=== PATIENT | male | born 1930 | race African-American/Black ===

== ENCOUNTER 2017-09-08 01:47 | Inpatient (IN) | payer MEDICARE ==
[2017-09-08] VITALS (15 sets, daily range): BP systolic 120–191; BP diastolic 56–85; PULSE 71–94; RESP 14–19; TEMP 98–102.6; O2SAT 96–99
[~2017-09-08] VITALS: Ht 175.3 cm; Wt 76.5 kg
[~2017-09-08 01:47] MED LIST: ASPI81 PO; GLIP5 PO; RANI150 PO
[2017-09-08 02:56] LABS: BICARBONATE 19.9 MEQ/L (21.0-32.0); CALCIUM 8.6 MG/DL (8.5-10.1); CREATININE 1.25 MG/DL (0.60-1.30)
[2017-09-08 03:16] LABS: AUTOMATED NEUTROPHIL # 8.5 TH/MM3 (1.8-7.7); BASOPHIL # 0.1 TH/MM3 (0-0.2); BASOPHIL % 0.5 % (0.0-2.0); EOSINOPHIL # 0.1 TH/MM3 (0-0.4); EOSINOPHIL % 0.9 % (0.0-4.0); HEMATOCRIT 37.6 % (39.0-51.0); HEMOGLOBIN 12.6 GM/DL (13.0-17.0); LYMPH % 11.2 % (9.0-44.0); LYMPHOCYTE # 1.2 TH/MM3 (1.0-4.8); MEAN CELL VOLUME 94.4 FL (80.0-100.0); MEAN CORPUSCULAR HEMOGLOBIN 31.6 PG (27.0-34.0); MEAN CORPUSCULAR HGB CONC 33.4 % (32.0-36.0); MEAN PLATELET VOLUME 8.6 FL (7.0-11.0); MONO % 10.6 % (0.0-8.0); MONOCYTE # 1.2 TH/MM3 (0-0.9); NEUT % 76.8 % (16.0-70.0); PLATELET COUNT 183 TH/MM3 (150-450); RED BLOOD COUNT 3.98 MIL/MM3 (4.50-5.90); RED CELL DISTRIBUTION WIDTH 15.3 % (11.6-17.2); WHITE BLOOD COUNT 11.1 TH/MM3 (4.0-11.0)
--- NOTE | 2017-09-08 03:23 | PD ---
HPI Chief Complaint: Complaint Time Seen by Provider: 02:04 Travel History International Travel<30 days: No Contact w/Intl Traveler<30days: No Traveled to known affect area: No History of Present Illness HPI This is an 86-year-old male with history of diabetes mellitus, prostate cancer, presents today with complaints of difficulty urinating. Patient also reports blood from his penis. He reports that he feels the urge over the last 24 hours. He states that when he goes to the restroom all he can do is push out a small amount of blood. He denies any previous history of hematuria. Initially when I asked the patient to be had any prostate issues, he reported that he had an enlarged prostate. He did not give the history of his prostate cancer which I obtained through the old records. There is no reported fevers, chills. There is no reported nausea vomiting diarrhea. PFSH Past Medical History Blood Disorders: No Diabetes: Yes Patient Takes Glucophage: Yes (GLIPIZIDE) Medical other: Yes (EYES) Tetanus Vaccination: < 5 Years Past Surgical History Surgical History: No Previous Surgery Social History Alcohol Use: Yes Tobacco Use: No Substance Use: No Allergies-Medications (Allergen,Severity, Reaction): Coded Allergies: No Known Allergies (Verified Allergy, Unknown, 09/08/17) Reported Meds & Prescriptions Reported Meds & Active Scripts Active Reported Zantac (Ranitidine HCl) 150 Mg Tab 150 Mg PO BID Aspirin 81 Mg Tab 81 Mg PO DAILY Glipizide 5 Mg Tab 5 Mg PO BID Review of Systems Except as stated in HPI: all other systems reviewed are Neg General / Constitutional: No: Fever, Chills HENT: No: Headaches, Lightheadedness Cardiovascular: No: Chest Pain or Discomfort, Palpitations Respiratory: No: Cough, Shortness of Breath Gastrointestinal: Positive: Abdominal Pain (Suprapubic pain), No: Nausea, Vomiting, Diarrhea Genitourinary: Positive: Dysuria, Hematuria Musculoskeletal: No: Weakness, Pain Neurologic: No: Weakness, Dizziness, Headache Physical Exam Narrative GENERAL: Well-developed well-nourished male in no acute respiratory distress. SKIN: Focused skin assessment warm/dry. HEAD: Atraumatic. Normocephalic. EYES: Pupils equal and round. No scleral icterus. No injection or drainage. ENT: No nasal bleeding or discharge. Mucous membranes pink and moist. NECK: Trachea midline. No JVD. CARDIOVASCULAR: Regular rate and rhythm. No murmur appreciated. RESPIRATORY: No accessory muscle use. Clear to auscultation. Breath sounds equal bilaterally. GASTROINTESTINAL: Abdomen soft, suprapubic discomfort to deep palpation. No rebound no guarding. MUSCULOSKELETAL: No obvious deformities. No clubbing. No cyanosis. No edema. NEUROLOGICAL: Awake and alert. No obvious cranial nerve deficits. Motor grossly within normal limits. Normal speech. Data Data Last Documented VS Vital Signs Date Time Temp Pulse Resp B/P (MAP) Pulse Ox O2 Delivery O2 Flow Rate FiO2 09/08/17 02:22 18 99 Room Air 09/08/17 01:52 100.1 74 191/84 (119) Orders Orders Complete Blood Count With Diff (09/08/17 02:04) Basic Metabolic Panel (Bmp) (09/08/17 02:04) Prothrombin Time / Inr (Pt) (09/08/17 02:04) Act Partial Throm Time (Ptt) (09/08/17 02:04) Urinalysis - C+S If Indicated (09/08/17 02:04) Iv Access Insert/Monitor (09/08/17 02:04) Ecg Monitoring (09/08/17 02:04) Oximetry (09/08/17 02:04) Urinary Catheter Insert/Apply (09/08/17 02:04) Urine Culture (09/08/17 02:57) Ceftriaxone Inj (Rocephin Inj) (09/08/17 04:00) Morphine Inj (Morphine Inj) (09/08/17 04:45) Ondansetron Inj (Zofran Inj) (09/08/17 04:45) Admit Order (Ed Use Only) (09/08/17 04:51) Labs Laboratory Tests Test 09/08/17 02:15 09/08/17 02:57 White Blood Count 11.1 TH/MM3 Red Blood Count 3.98 MIL/MM3 Hemoglobin 12.6 GM/DL Hematocrit 37.6 % Mean Corpuscular Volume 94.4 FL Mean Corpuscular Hemoglobin 31.6 PG Mean Corpuscular Hemoglobin Concent 33.4 % Red Cell Distribution Width 15.3 % Platelet Count 183 TH/MM3 Mean Platelet Volume 8.6 FL Neutrophils (%) (Auto) 76.8 % Lymphocytes (%) (Auto) 11.2 % Monocytes (%) (Auto) 10.6 % Eosinophils (%) (Auto) 0.9 % Basophils (%) (Auto) 0.5 % Neutrophils # (Auto) 8.5 TH/MM3 Lymphocytes # (Auto) 1.2 TH/MM3 Monocytes # (Auto) 1.2 TH/MM3 Eosinophils # (Auto) 0.1 TH/MM3 Basophils # (Auto) 0.1 TH/MM3 CBC Comment DIFF FINAL Differential Comment Prothrombin Time 10.0 SEC Prothromb Time International Ratio 1.0 RATIO Activated Partial Thromboplast Time 30.2 SEC Blood Urea Nitrogen 27 MG/DL Creatinine 1.25 MG/DL Random Glucose 139 MG/DL Calcium Level 8.6 MG/DL Sodium Level 138 MEQ/L Potassium Level 3.7 MEQ/L Chloride Level 108 MEQ/L Carbon Dioxide Level 19.9 MEQ/L Anion Gap 10 MEQ/L Estimat Glomerular Filtration Rate 67 ML/MIN Urine Color DARK-RED Urine Turbidity HAZY Urine pH 6.5 Urine Specific [place] 1.008 Urine Protein 100 mg/dL Urine Glucose (UA) NEG mg/dL Urine Ketones 10 mg/dL Urine Occult Blood LARGE Urine Nitrite POS Urine Bilirubin SMALL Urine Urobilinogen 2.0 MG/DL Urine Leukocyte Esterase MOD Urine RBC 154 /hpf Urine WBC /hpf Urine WBC Clumps FEW Urine Calcium Oxalate Crystals FEW /hpf Urine Bacteria MANY /hpf Microscopic Urinalysis Comment CULTURE INDICATED MDM Medical Decision Making Medical Screen Exam Complete: Yes Emergency Medical Condition: Yes Differential Diagnosis Hemorrhagic cystitis versus enlarged prostate versus bladder cancer. Narrative Course 86-year-old male with a history of prostate cancer, diabetes most, presents today with complaint of hematuria and inability to urinate. States he has the urge to urinate however when he goes to urinate only pure blood comes out of his bladder. There is no reported fevers chills. The patient has gross hematuria on exam. He has had a catheter placed and has continuous bowel irrigation initiated. He has been given 1 g of Rocephin. He will be admitted to the hospital for persistent hematuria. Case was discussed with Dr. Quispe and she is agreeable to the admission. Diagnosis Primary Impression: Hemorrhagic cystitis Additional Impressions: Urinary retention DM (diabetes mellitus) Admitting Information Admitting Physician Requests: Admit Jonh Ritchie MD Sep 08, 2017 03:23
[2017-09-08 03:42] LABS: BACTERIA, URINE MANY /hpf; BILIRUBIN, URINE SMALL (NEG); BLOOD, URINE LARGE (NEG); CALCIUM OXALATE CRYSTALS,URINE FEW /hpf; GLUCOSE,URINE NEG (NEG); KETONE, URINE 10 mg/dL (NEG); NITRITE,URINE POS (NEG); PH, URINE 6.5 (5.0-8.5); URINE LEUKOCYTE ESTERASE MOD (NEG); WHITE BLOOD CELL CLUMPS FEW
[2017-09-08 03:43] LABS: URINE COLOR DARK-RED (YELLW/STRAW)
[2017-09-08] MEDS ORDERED: cefTRIAXone INJ 1,000 MG in SODIUM CHLORIDE 0.9% INJ 100 ML IV ONE (04:00)
[2017-09-08] MEDS ORDERED: MORPHINE SULFATE 8 MG/ML INJ IV PUSH ONE (04:45)
[2017-09-08] MEDS ORDERED: ONDANSETRON HCL 4 MG/2 ML VIAL IV PUSH ONE (04:45)
[2017-09-08] MEDS ORDERED: BISACODYL 10 MG SUPP RECTAL PRN (05:00)
[2017-09-08] MEDS ORDERED: SODIUM CHLORIDE 0.9% FLUSH 10 ML FLUSH IV FLUSH PRN (05:00)
[2017-09-08] MEDS ORDERED: DEXTROSE 50% IN WATER 50 ML VIAL(D50) IV PUSH PRN (05:00)
[2017-09-08] MEDS ORDERED: LACTULOSE SYRUP 20 GM/30 ML CUP PO PRN (05:00)
[2017-09-08] MEDS ORDERED: ACETAMINOPHEN/HYDROcodone 325 MG/5 MG TAB PO PRN (05:00)
[2017-09-08] MEDS ORDERED: ONDANSETRON HCL 4 MG/2 ML VIAL IVP PRN (05:00)
[2017-09-08] MEDS ORDERED: SENNOSIDES 8.6 MG TAB PO PRN (05:00)
[2017-09-08] MEDS ORDERED: MORPHINE SULFATE 2 MG/ML SYRINGE IV PUSH PRN (05:00)
[2017-09-08] MEDS ORDERED: GLUCAGON 1 MG/ML VIAL OTHER PRN (05:00)
--- NOTE | 2017-09-08 05:18 | HHI.HP ---
H[facility] Primary [facility] Physician Anjali Hood MD Admission Diagnosis persistant gross hematuria, cystitis, prostate cancer by history. Diagnoses: (1) Hemorrhagic cystitis Diagnosis: Principal (2) Urinary retention Diagnosis: Principal (3) DM (diabetes mellitus) Diagnosis: Principal Travel History International Travel<30 Days: No Contact w/Intl Traveler <30 Da: No Traveled to Known Affected Are: No History of Present Illness This is an 86-year-old male with a PMH of HTN, Prostate CA and DM who presented to the ER with complaints of difficulty urinating in addition to hematuria x1 day. Notes dysuria as well. H/o Prostate CA per records, but unable to tell me who he follows w/ or if he underwent treatment, pt poor historian overall. Denies abdominal pain, nausea or vomiting. On arrival, BP 191/84, HR 74, O2 sat 98% on RA, Temp 100.1. WBC 11.1. Hemoglobin 12.6. Chemistry essentially unremarkable except for BUN 27, GFR 67. INR 1.0. UA was significant hematuria and UTI. S/p Kim placement in ER w/ irrigation, persistent hematuria. On ASA at home. S/p Rocephin Review of Systems Except as stated in HPI: all other systems reviewed are Neg ROS: 14 point review of systems otherwise negative. Past Family Social History Past Medical History PMH: HTN, Prostate CA and DM Past Surgical History PAST SURGICAL HISTORY: None Allergies: Coded Allergies: No Known Allergies (Verified Allergy, Unknown, 09/08/17) Family History PAST FAMILY HISTORY: Reviewed. No h/o DM or CAD Social History PAST SOCIAL HISTORY: Occasional alcohol. Negative for tobacco or drugs. Physical Exam Vital Signs Vital Signs Date Time Temp Pulse Resp B/P (MAP) Pulse Ox O2 Delivery O2 Flow Rate FiO2 09/08/17 02:22 18 99 Room Air 09/08/17 01:52 100.1 74 16 191/84 (119) 98 Physical Exam PE: GENERAL: Very pleasant elderly black male in no acute distress. Family at bedside. HEENT: PERRLA, EOMI. No scleral icterus or conjunctival pallor. No lid lag or facial droop. CARDIOVASCULAR: Regular rate and rhythm. No obvious murmurs to auscultation. No chest tenderness to palpation. RESPIRATORY: No obvious rhonchi or wheezing. Clear to auscultation. Breath sounds equal bilaterally. GASTROINTESTINAL: Abdomen soft, non-tender, nondistended. BS normal. Kim in place, gross hematuria. MUSCULOSKELETAL: Extremities without clubbing, cyanosis, or edema. No obvious deformities. NEUROLOGICAL: Awake, alert and oriented x4. No focal neurologic deficits. Moving both upper and lower extremities spontaneously. Laboratory Laboratory Tests Test 09/08/17 02:15 09/08/17 02:57 White Blood Count 11.1 Red Blood Count 3.98 Hemoglobin 12.6 Hematocrit 37.6 Mean Corpuscular Volume 94.4 Mean Corpuscular Hemoglobin 31.6 Mean Corpuscular Hemoglobin Concent 33.4 Red Cell Distribution Width 15.3 Platelet Count 183 Mean Platelet Volume 8.6 Neutrophils (%) (Auto) 76.8 Lymphocytes (%) (Auto) 11.2 Monocytes (%) (Auto) 10.6 Eosinophils (%) (Auto) 0.9 Basophils (%) (Auto) 0.5 Neutrophils # (Auto) 8.5 Lymphocytes # (Auto) 1.2 Monocytes # (Auto) 1.2 Eosinophils # (Auto) 0.1 Basophils # (Auto) 0.1 CBC Comment DIFF FINAL Differential Comment Prothrombin Time 10.0 Prothromb Time International Ratio 1.0 Activated Partial Thromboplast Time 30.2 Blood Urea Nitrogen 27 Creatinine 1.25 Random Glucose 139 Calcium Level 8.6 Sodium Level 138 Potassium Level 3.7 Chloride Level 108 Carbon Dioxide Level 19.9 Anion Gap 10 Estimat Glomerular Filtration Rate 67 Urine Color DARK-RED Urine Turbidity HAZY Urine pH 6.5 Urine Specific [place] 1.008 Urine Protein 100 Urine Glucose (UA) NEG Urine Ketones 10 Urine Occult Blood LARGE Urine Nitrite POS Urine Bilirubin SMALL Urine Urobilinogen 2.0 Urine Leukocyte Esterase MOD Urine RBC 154 Urine WBC Urine WBC Clumps FEW Urine Calcium Oxalate Crystals FEW Urine Bacteria MANY Microscopic Urinalysis Comment CULTURE INDICATED Date/Time Source Procedure Growth Status 09/08/17 02:57 Urine Random Urine Urine Culture Pending Received Result Diagram: 09/08/1721409/08/17214 Caprini VTE Risk Assessment Caprini VTE Risk Assessment: No/Low Risk (score <= 1) Caprini Risk Assessment Model Point Value = 1 Point Value = 2 Point Value = 3 Point Value = 5 Age 41-60 Minor surgery BMI > 25 kg/m2 Swollen legs Varicose veins or History of unexplained or recurrent spontaneous Oral contraceptives or hormone replacement Sepsis (< 1 month) Serious lung disease, including pneumonia (< 1 month) Abnormal pulmonary function Acute myocardial infarction Congestive heart failure (< 1 month) History of inflammatory bowel disease Medical patient at bed rest Age 61-74 Arthroscopic surgery Major open surgery (> 45 min) Laparoscopic surgery (> 45 min) Malignancy Confined to bed (> 72 hours) Immobilizing plaster cast Central venous access Age >= 75 History of VTE Family history of VTE Factor V Leiden Prothrombin [id number] Lupus anticoagulant Anticardiolipin antibodies Elevated serum homocysteine Heparin-induced thrombocytopenia Other congenital or acquired thrombophilia Stroke (< 1 month) Elective arthroplasty Hip, pelvis, or leg fracture Acute spinal cord injury (< 1 month) Prophylaxis Regimen Total Risk Factor Score Risk Level Prophylaxis Regimen 0-1 Low Early ambulation 2 Moderate Order ONE of the following: *Sequential Compression Device (SCD) *Heparin 5000 units SQ BID 3-4 Higher Order ONE of the following medications: *Heparin 5000 units SQ TID *Enoxaparin/Lovenox 40 mg SQ daily (WT < 150 kg, CrCl > 30 mL/min) *Enoxaparin/Lovenox 30 mg SQ daily (WT < 150 kg, CrCl > 10-29 mL/min) *Enoxaparin/Lovenox 30 mg SQ BID (WT < 150 kg, CrCl > 30 mL/min) AND/OR *Sequential Compression Device (SCD) 5 or more Highest Order ONE of the following medications: *Heparin 5000 units SQ TID (Preferred with Epidurals) *Enoxaparin/Lovenox 40 mg SQ daily (WT < 150 kg, CrCl > 30 mL/min) *Enoxaparin/Lovenox 30 mg SQ daily (WT < 150 kg, CrCl > 10-29 mL/min) *Enoxaparin/Lovenox 30 mg SQ BID (WT < 150 kg, CrCl > 30 mL/min) AND *Sequential Compression Device (SCD) Assessment and Plan Problem List: (1) Hemorrhagic cystitis ICD Code: N30.91 - Cystitis, unspecified with hematuria (2) Urinary retention ICD Code: R33.9 - Retention of urine, unspecified (3) DM (diabetes mellitus) ICD Code: E11.9 - Type 2 diabetes mellitus without complications Assessment and Plan A/P: 1. Hemorrhagic Cystitis: acute onset of dysuria, urgency and hematuria, U/a w / significant hematuria/UTI, s/p Rocephin in ER, will continue w/ IV Abx. Kim in place, continue w/ bladder irrigation, will consult Urology for further evaluation. Hold ASA. 2. Urinary Retention: secondary to above, s/p Kim w/ improvement, monitor I/ O, IVF to replace losses 3. DM: Sliding scale w/ Accu-Cheks. 4. DVT Prophylaxis: SCD/Teds 5. Social work for d/c planning as needed. 6. Case discussed w/ ER physician at length, labs/records/imaging reviewed by me. Physician Certification 2 Midnight Certification Type: Admission for Inpatient Services Order for Inpatient Services The services are ordered in accordance with Medicare regulations or non- Medicare payer requirements, as applicable. In the case of services not specified as inpatient-only, they are appropriately provided as inpatient services in accordance with the 2-midnight benchmark. Estimated LOS (days): 2 days is the estimated time the patient will need to remain in the hospital, assuming treatment plan goals are met and no additional complications. Post-Hospital Plan: Not yet determined Arlette Eisenberg MD Sep 08, 2017 05:18
[2017-09-08] MEDS: SODIUM CHLOR 0.9% 1000 ML INJ 1,000 ML IV SCH ×2 (06:13→15:28)
[2017-09-08] MEDS: SODIUM CHLORIDE 0.9% FLUSH 10 ML FLUSH IV FLUSH SCH ×2 (09:34→20:35)
[2017-09-08] MEDS: INSULIN ASPART SUPPLEMENTAL SCALE SQ SCH ×4 (09:34→22:10)
[2017-09-08] MEDS: DOCUSATE SODIUM 50 MG/SENNA 8.6 MG TAB PO SCH ×2 (09:34→20:34)
--- NOTE | 2017-09-08 14:13 | MB ---
cc: Beka Zavala MD DATE: 09/08/2017 REASON FOR CONSULTATION: 1. Gross hematuria. 2. Urinary tract infection. 3. History of prostate cancer. HISTORY OF PRESENT ILLNESS: The patient is an 86-year-old male with history of prostate cancer, status post external beam radiation in the past, who presented to the ER yesterday with complaints of gross hematuria, urinary frequency and difficulty starting a stream for 1 day. He also stated he had significant dysuria. He denied fevers, chills, abdominal pain, nausea or vomiting. On arrival, he was found to have some slightly low-grade fever of temperature of 101, a white count of 11,000. His UA was significant for urinary tract infection. He had an 18-Cymraes 3-way Kim catheter placed in the ER and started on continuous bladder irrigation, and urology was consulted. The patient states he already feels better today. Denies having a fever. States he usually does not have problems voiding on a normal basis, and he has a strong stream and does not leak urine. However, as of late, he has been urinating more frequently, including 4-5 times at night. He is not taking any medication for his prostate at this time. He is not sure who treated him for his prostate cancer in the past, but he does note that he has had radiation. REVIEW OF SYSTEMS: See HPI. All other systems reviewed, otherwise are negative. PAST MEDICAL HISTORY: Significant for prostate cancer, diabetes, hypertension. PAST SURGICAL HISTORY: Denies. ALLERGIES: NO DRUG ALLERGIES. FAMILY HISTORY: Denies urolithiasis or genitourinary malignancies. No diabetes or coronary artery disease. SOCIAL HISTORY: Denies tobacco or illicit drug use. He has occasional alcohol use. HOME MEDICATIONS: None. PHYSICAL EXAMINATION: VITAL SIGNS: T-max 100.1, pulse 83, respiration 18, BP 160/74, saturating 97% on room air. GENERAL: He is alert, oriented to person, place and thing. He does not appear to be in any distress. He appears younger than his stated age. HEAD: Head is normocephalic, atraumatic. EYES: No sclerae icterus. Extraocular muscles intact. NECK: Supple. Trachea is midline. No JVD. EARS: External auditory canals are normal. hearing is normal. LUNGS: Clear to auscultation bilaterally. No wheezes, rales or rhonchi. HEART: Regular rate and rhythm. No murmurs, gallops or rubs. ABDOMEN: Soft, nontender, nondistended, positive bowel sounds. GENITOURINARY: Penis is uncircumcised. Testes descended bilaterally, normal size and consistency without mass. He has an 18-Cymraes 2-way Kim catheter draining light pink urine on very slow CBI drip. EXTREMITIES: Nontender. No clubbing, cyanosis or edema. NEUROLOGIC: Cranial nerves 2-12 intact. Strength 5/5 in all 4 extremities. SKIN: No ulcers or rashes. Mucous membranes warm and dry. PSYCHIATRIC: Normal affect, answers questions appropriately. LABORATORY DATA: White count 11.1, hemoglobin 12.6, hematocrit 37.6, platelet count 183. Sodium 138, potassium 3.7, chloride 108, bicarbonate , BUN 27, creatinine 1.25. His urine was positive for nitrite, large blood, moderate leukocyte esterase. Culture currently pending. IMAGING STUDIES: None indicated at this time. ASSESSMENT: The patient is an 86-year-old male with history of prostate cancer, status post external beam radiation therapy, who presents with gross hematuria and was found to have urinary tract infection. PLAN: Continue the continuous bladder irrigation and wean to clear. Once it is clear, we can consider a void trial on the patient. Start on Flomax 0.4 mg daily. Continue broad spectrum antibiotics for now pending urine culture. The blood in his urine is likely from the urinary tract infection at this time. Once his urinary tract infection is adequately treated, we will repeat his urinalysis in 4-6 weeks. If he continues to have blood in his urine at that time, then will undergo a formal hematuria workup. Thank you for this consult. Will follow along with your. MD MONICA Porter/TANISHA , 01:44 PM , 02:13 PM
[2017-09-08] MEDS: TAMSULOSIN HCL 0.4 MG CAP PO SCH (15:27)
[2017-09-08] MEDS: cloNIDine HCL 0.1 MG TAB PO PRN (16:27)
[2017-09-08] MEDS: ACETAMINOPHEN 325 MG TAB PO PRN (23:42)
[2017-09-09] VITALS (20 sets, daily range): BP systolic 118–167; BP diastolic 54–78; PULSE 52–84; RESP 18–20; TEMP 98.1–100.3; O2SAT 97–98
[2017-09-09] MEDS: SODIUM CHLOR 0.9% 1000 ML INJ 1,000 ML IV SCH ×2 (00:59→12:53)
[2017-09-09] MEDS: cefTRIAXone INJ 1,000 MG in SODIUM CHLORIDE 0.9% INJ 100 ML IV SCH (05:17)
[2017-09-09 06:27] LABS: AUTOMATED NEUTROPHIL # 9.4 TH/MM3 (1.8-7.7); BASOPHIL % 0.3 % (0.0-2.0); EOSINOPHIL # 0.1 TH/MM3 (0-0.4); EOSINOPHIL % 0.5 % (0.0-4.0); HEMATOCRIT 33.5 % (39.0-51.0); HEMOGLOBIN 11.2 GM/DL (13.0-17.0); LYMPH % 9.5 % (9.0-44.0); LYMPHOCYTE # 1.1 TH/MM3 (1.0-4.8); MEAN CELL VOLUME 94.7 FL (80.0-100.0); MEAN CORPUSCULAR HEMOGLOBIN 31.5 PG (27.0-34.0); MEAN CORPUSCULAR HGB CONC 33.3 % (32.0-36.0); MEAN PLATELET VOLUME 8.4 FL (7.0-11.0); MONOCYTE # 1.3 TH/MM3 (0-0.9); NEUT % 78.7 % (16.0-70.0); PLATELET COUNT 162 TH/MM3 (150-450); RED BLOOD COUNT 3.54 MIL/MM3 (4.50-5.90); RED CELL DISTRIBUTION WIDTH 15.2 % (11.6-17.2); WHITE BLOOD COUNT 11.9 TH/MM3 (4.0-11.0)
[2017-09-09 06:50] LABS: ALBUMIN 2.6 GM/DL (3.4-5.0); ALT (GPT) 15 U/L (12-78); AST (GOT) 18 U/L (15-37); BICARBONATE 21.3 MEQ/L (21.0-32.0); BLOOD UREA NITROGEN 24 MG/DL (7-18); CALCIUM 8.2 MG/DL (8.5-10.1); CHLORIDE 111 MEQ/L (98-107); GLOMERULAR FILTRATION RATE 70 ML/MIN (>89); GLUCOSE,RANDOM 120 MG/DL (74-106); SODIUM (NA) 143 MEQ/L (136-145)
[2017-09-09 06:53] LABS: ALKALINE PHOSPHATASE 53 U/L (45-117); TOTAL BILIRUBIN ADULT 0.5 MG/DL (0.2-1.0); TOTAL PROTEIN 6.5 GM/DL (6.4-8.2)
[2017-09-09] MEDS: INSULIN ASPART SUPPLEMENTAL SCALE SQ SCH ×4 (08:00→22:24)
[2017-09-09] MEDS: SODIUM CHLORIDE 0.9% FLUSH 10 ML FLUSH IV FLUSH SCH ×2 (09:00→22:15)
[2017-09-09] MEDS: DOCUSATE SODIUM 50 MG/SENNA 8.6 MG TAB PO SCH ×2 (09:45→22:14)
[2017-09-09] MEDS: TAMSULOSIN HCL 0.4 MG CAP PO SCH (09:45)
[2017-09-09] MEDS: MAGNESIUM HYDROXIDE SUSP 30 ML CUP PO PRN (15:30)
[2017-09-09] MEDS: cloNIDine HCL 0.1 MG TAB PO PRN (15:39)
[2017-09-09] MEDS: ACETAMINOPHEN 325 MG TAB PO PRN (15:39)
--- NOTE | 2017-09-09 15:53 | HHI.PR ---
Subjective Patient symptoms today 09/08/17: The patient is an 86-year-old male with history of prostate cancer, status post external beam radiation in the past, who presented to the ER yesterday with complaints of gross hematuria, urinary frequency and difficulty starting a stream for 1 day. He also stated he had significant dysuria. He denied fevers, chills, abdominal pain, nausea or vomiting. On arrival, he was found to have some slightly low-grade fever of temperature of 101, a white count of 11,000. His UA was significant for urinary tract infection. He had an 18-[place] 3-way Kim catheter placed in the ER and started on continuous bladder irrigation, and urology was consulted. The patient states he already feels better today. Denies having a fever. States he usually does not have problems voiding on a normal basis, and he has a strong stream and does not leak urine. However, as of late, he has been urinating more frequently, including 4-5 times at night. He is not taking any medication for his prostate at this time. He is not sure who treated him for his prostate cancer in the past, but he does note that he has had radiation. 09/09/17: pt was seen at the bedside today. VS are stable labs are stable too. UC is growing Gm-rods. blood culture is pending. CBI is on, hematuria is improving. Objective Vital Signs Vital Signs Date Time Temp Pulse Resp B/P (MAP) Pulse Ox O2 Delivery O2 Flow Rate FiO2 09/09/17 11:32 98.7 76 18 146/67 (93) 97 09/09/17 11:00 69 09/09/17 10:00 66 09/09/17 09:00 78 09/09/17 08:00 66 09/09/17 07:15 98.6 72 19 148/58 (88) 97 09/09/17 07:00 76 09/09/17 06:00 67 09/09/17 05:00 70 09/09/17 04:00 52 09/09/17 03:29 98.1 68 18 118/54 (75) 98 09/09/17 03:00 53 09/09/17 02:00 54 09/09/17 01:00 70 09/09/17 00:00 80 09/08/17 23:36 102.6 85 18 120/56 (77) 96 09/08/17 23:00 71 09/08/17 22:00 82 09/08/17 21:00 72 09/08/17 20:00 94 09/08/17 19:57 98.2 90 19 127/65 (85) 96 09/08/17 19:00 85 Intake & Output 09/09/17 09/09/17 07:00 19:00 Intake Total 1650 ml Output Total 2900 ml Balance -1250 ml Intake Oral 650 ml IV Total 1000 ml Output Urine Total 2900 ml Result Diagram: 09/09/17 0503 09/09/17 0508 Objective Remarks CBI is running urine is clear/very light pink Medications and IVs Current Medications Medications (Trade) Dose Ordered Sig/Mckinley Route Start Time Stop Time Status Last Admin (D50w (Vial) Inj) 50 ml UNSCH PRN IV PUSH 09/08/17 05:00 (Glucagon Inj) 1 mg UNSCH PRN OTHER 09/08/17 05:00 (NovoLOG SUPPLEMENTAL SCALE) 1 ACHS SLIDING SCALE SQ 09/08/17 08:00 09/09/17 12:00 Ceftriaxone Sodium 1000 mg/ Sodium Chloride 100 ml @ 200 mls/hr Q24H IV 09/09/17 06:00 09/09/17 05:17 Sodium Chloride 1,000 ml @ 100 mls/hr Q10H IV 09/08/17 04:59 09/09/17 12:53 (NS Flush) 2 ml UNSCH PRN IV FLUSH 09/08/17 05:00 (NS Flush) 2 ml BID IV FLUSH 09/08/17 09:00 09/08/17 20:35 (Zofran Inj) 4 mg Q6H PRN IVP 09/08/17 05:00 (Tylenol) 650 mg Q6H PRN PO 09/08/17 05:00 09/09/17 15:39 ([place] 5-325 Mg) 1 tab Q4H PRN PO 09/08/17 05:00 09/08/17 10:27 (Morphine Inj) 2 mg Q3H PRN IV PUSH 09/08/17 05:00 (Amy-Colace) 1 tab BID PO 09/08/17 09:00 09/09/17 09:45 (Milk Of Magnesia Liq) 30 ml Q12H PRN PO 09/08/17 05:00 09/09/17 15:30 (Senokot) 17.2 mg Q12H PRN PO 09/08/17 05:00 (Dulcolax Supp) 10 mg DAILY PRN RECTAL 09/08/17 05:00 (Lactulose Liq) 30 ml DAILY PRN PO 09/08/17 05:00 (Flomax) 0.4 mg DAILY PO 09/08/17 13:45 09/09/17 09:45 (Catapres) 0.1 mg Q6H PRN PO 09/08/17 16:00 09/09/17 15:39 Assessment and Plan Assessment and Plan 86 y.o M with above history with UTI and hematuria now - Continue IV antbx and care as per primary team - CBI can be stopped and urine color needs to be reevaluated in 1-2 hrs, if remains clear, keep CBI closed, if no changes overnight, d/c CBI - When urine is clear he can have voiding trial - Finish antbx after discharge and Repeat UC in a month Urology remains available as needed All discussed with pt, his son ( over the phone ) and RN Also discussed with Dr Sally HOLLEY attending who agrees with this plan Denis Cerrato Sep 09, 2017 15:53
--- NOTE | 2017-09-09 15:56 | HHI.PR ---
Subjective Remarks hematuria is resolving. Patient denies cp/sob Afebrile Denies abdominal pain Objective Vitals Vital Signs Date Time Temp Pulse Resp B/P (MAP) Pulse Ox O2 Delivery O2 Flow Rate FiO2 09/09/17 11:32 98.7 76 18 146/67 (93) 97 09/09/17 11:00 69 09/09/17 10:00 66 09/09/17 09:00 78 09/09/17 08:00 66 09/09/17 07:15 98.6 72 19 148/58 (88) 97 09/09/17 07:00 76 09/09/17 06:00 67 09/09/17 05:00 70 09/09/17 04:00 52 09/09/17 03:29 98.1 68 18 118/54 (75) 98 09/09/17 03:00 53 09/09/17 02:00 54 09/09/17 01:00 70 09/09/17 00:00 80 09/08/17 23:36 102.6 85 18 120/56 (77) 96 09/08/17 23:00 71 09/08/17 22:00 82 09/08/17 21:00 72 09/08/17 20:00 94 09/08/17 19:57 98.2 90 19 127/65 (85) 96 09/08/17 19:00 85 I/O 09/08/17 09/08/17 09/08/17 09/09/17 09/09/17 09/09/17 06:59 14:59 22:59 06:59 14:59 22:59 Intake Total 100 ml 600 ml 1650 ml Output Total 2200 ml 750 ml 2900 ml Balance 100 ml -2200 ml -150 ml -1250 ml Intake Oral 600 ml 650 ml IV Total 100 ml 1000 ml Output Urine Total 2200 ml 750 ml 2900 ml # Voids 1 Result Diagram: 09/09/17 0503 09/09/17 0508 Objective Remarks GENERAL: Very pleasant elderly black male in no acute distress. HEENT: PERRLA, EOMI. No scleral icterus or conjunctival pallor. No lid lag or facial droop. CARDIOVASCULAR: Regular rate and rhythm. No obvious murmurs to auscultation. No chest tenderness to palpation. RESPIRATORY: No obvious rhonchi or wheezing. Clear to auscultation. Breath sounds equal bilaterally. GASTROINTESTINAL: Abdomen soft, non-tender, nondistended. BS normal. Kim in place with clear urine MUSCULOSKELETAL: Extremities without clubbing, cyanosis, or edema. No obvious deformities. NEUROLOGICAL: Awake, alert and oriented x4. No focal neurologic deficits. Moving both upper and lower extremities spontaneously. A/P Problem List: (1) Hemorrhagic cystitis ICD Code: N30.91 - Cystitis, unspecified with hematuria (2) Urinary retention ICD Code: R33.9 - Retention of urine, unspecified (3) DM (diabetes mellitus) ICD Code: E11.9 - Type 2 diabetes mellitus without complications Assessment and Plan 1. Hemorrhagic Cystitis: acute onset of dysuria, urgency and hematuria, U/a w / significant hematuria/UTI, s/p Rocephin in ER, will continue w/ IV Abx. Kim in place, continue w/ bladder irrigation, will consult Urology for further evaluation. Hold ASA. 09/09 Appreciate urology recommendations. Hematuria 2/2 UTI. Continue Rocephin, urine culture is growing gram negative rods. Start voiding trials in am if hematuria still resolved. 2. Urinary Retention: secondary to above, s/p Kim w/ improvement, monitor I/ O, IVF to replace losses 09/09 Dc IV lfuids. Voiding trials in am. 3. DM: Sliding scale w/ Accu-Cheks. 4. DVT Prophylaxis: SCD/Teds 5. Social work for d/c planning as needed. Discharge Planning Possible Dc in am. Chris Polanco MD Sep 09, 2017 15:56
[2017-09-10] VITALS: BP 156/70; PULSE 68; RESP 16; TEMP 98.6; O2SAT 98
[2017-09-10 04:00] VITALS: BP 149/66; PULSE 83; RESP 16; TEMP 97.1; O2SAT 95
[2017-09-10] MEDS ORDERED: LATA0.002 EACH EYE (05:08)
[2017-09-10] MEDS ORDERED: DORZ2SOL15 EACH EYE (05:09)
[2017-09-10] MEDS ORDERED: PILO2SOL3 EACH EYE (05:10)
[2017-09-10] MEDS: cefTRIAXone INJ 1,000 MG in SODIUM CHLORIDE 0.9% INJ 100 ML IV SCH (05:30)
[2017-09-10 05:47] LABS: HEMOGLOBIN 10.8 GM/DL (13.0-17.0); MEAN CELL VOLUME 93.3 FL (80.0-100.0); MEAN CORPUSCULAR HEMOGLOBIN 31.6 PG (27.0-34.0); MEAN CORPUSCULAR HGB CONC 33.8 % (32.0-36.0); MEAN PLATELET VOLUME 8.6 FL (7.0-11.0); PLATELET COUNT 160 TH/MM3 (150-450); RED BLOOD COUNT 3.43 MIL/MM3 (4.50-5.90); RED CELL DISTRIBUTION WIDTH 14.8 % (11.6-17.2); WHITE BLOOD COUNT 8.6 TH/MM3 (4.0-11.0)
[2017-09-10 05:52] LABS: BICARBONATE 25.9 MEQ/L (21.0-32.0); CREATININE 1.15 MG/DL (0.60-1.30); MAGNESIUM 2.3 MG/DL (1.5-2.5); PHOSPHORUS 1.8 MG/DL (2.5-4.9)
[2017-09-10] MEDS: MAGNESIUM HYDROXIDE SUSP 30 ML CUP PO PRN (06:47)
[2017-09-10 07:42] VITALS: BP 156/72; PULSE 72; RESP 20; TEMP 98.8; O2SAT 99
[2017-09-10] MEDS: INSULIN ASPART SUPPLEMENTAL SCALE SQ SCH ×4 (07:59→20:55)
[2017-09-10] MEDS: SODIUM CHLORIDE 0.9% FLUSH 10 ML FLUSH IV FLUSH SCH ×2 (08:00→20:55)
[2017-09-10] MEDS: TAMSULOSIN HCL 0.4 MG CAP PO SCH (08:00)
[2017-09-10] MEDS: DOCUSATE SODIUM 50 MG/SENNA 8.6 MG TAB PO SCH ×2 (08:01→20:54)
[2017-09-10] MEDS ORDERED: TAMS5CAP PO (10:04)
[2017-09-10] MEDS ORDERED: CIPR-9 PO (10:04)
[2017-09-10 12:10] VITALS: BP 190/86; PULSE 95; RESP 20; TEMP 98.7; O2SAT 96
--- NOTE | 2017-09-10 13:08 | HHI.PR ---
Subjective Remarks Pleasant, sitting on the chair, wants to be going home Bladder scan has been done discussed with the nurse urology cleared to be discharged and follow-up as an outpatient We will need to assess his mobility, PT order stat to address discharge disposition Objective Vitals Vital Signs Date Time Temp Pulse Resp B/P (MAP) Pulse Ox O2 Delivery O2 Flow Rate FiO2 09/10/17 12:10 98.7 95 20 190/86 (120) 96 09/10/17 07:42 98.8 72 20 156/72 (100) 99 09/10/17 04:00 97.1 83 16 149/66 (93) 95 09/10/17 00:00 98.6 68 16 156/70 (98) 98 09/09/17 20:00 98.9 63 18 140/63 (88) 97 09/09/17 15:00 100.3 84 20 167/78 (107) 98 09/09/17 15:00 73 09/09/17 14:00 82 I/O 09/09/17 09/09/17 09/09/17 09/10/17 09/10/17 09/10/17 07:00 15:00 23:00 07:00 15:00 23:00 Intake Total 1650 ml 2300 ml Output Total 2900 ml 4125 ml 1575 ml Balance -1250 ml -1825 ml -1575 ml Intake Oral 650 ml 1200 ml IV Total 1000 ml 1100 ml Output Urine Total 2900 ml 4125 ml 1575 ml # Voids 1 # Bowel Movements 1 Result Diagram: 09/10/17 0338 09/10/17 0338 Objective Remarks GENERAL: This is a well-nourished, well-developed patient, in no apparent distress. CARDIOVASCULAR: RRR, no gallops, or rubs. RESPIRATORY: Fair air entry bilaterally. No W, R, or R GASTROINTESTINAL: Abdomen soft, non-tender, nondistended. Positive bowel sounds MUSCULOSKELETAL: Extremities without clubbing, cyanosis, or edema. Pedal pulses appreciated NEUROLOGICAL: Awake and alert. Moves all extremity. Normal speech.no focal neurological deficit A/P Problem List: (1) Hemorrhagic cystitis ICD Code: N30.91 - Cystitis, unspecified with hematuria (2) Urinary retention ICD Code: R33.9 - Retention of urine, unspecified (3) DM (diabetes mellitus) ICD Code: E11.9 - Type 2 diabetes mellitus without complications Assessment and Plan 86 years old -[place] male presented with hemorrhagic Cystitis with urinary retention, acute onset of dysuria, urgency and hematuria, U/a w/ significant hematuria/UTI, s/p Rocephin .FoleyIVF to replace losses, bladder irrigation, Hold ASA., Urology consult obtained Appreciate urology recommendations. Hematuria 2/2 UTI. Continue Rocephin, urine culture is growing gram negative rods. Flomax Cipro at discharge follow-up with urology s/p Discharge Planning Today to sniff or home with home health pending PT recommendation Karli Parrish MD Sep 10, 2017 13:08
--- NOTE | 2017-09-10 13:08 | HHI.DS ---
Discharge Summary Admission Date Sep 08, 2017 at 04:53 Admitting Diagnosis persistant gross hematuria, cystitis, prostate cancer by history. (1) Hemorrhagic cystitis ICD Code: N30.91 - Cystitis, unspecified with hematuria (2) Urinary retention ICD Code: R33.9 - Retention of urine, unspecified (3) DM (diabetes mellitus) ICD Code: E11.9 - Type 2 diabetes mellitus without complications Procedures See below Brief History - From Admission This is an 86-year-old male with a PMH of HTN, Prostate CA and DM who presented to the ER with complaints of difficulty urinating in addition to hematuria x1 day. Notes dysuria as well. H/o Prostate CA per records, but unable to tell me who he follows w/ or if he underwent treatment, pt poor historian overall. Denies abdominal pain, nausea or vomiting. On arrival, BP 191/84, HR 74, O2 sat 98% on RA, Temp 100.1. WBC 11.1. Hemoglobin 12.6. Chemistry essentially unremarkable except for BUN 27, GFR 67. INR 1.0. UA was significant hematuria and UTI. S/p Kim placement in ER w/ irrigation, persistent hematuria. On ASA at home. S/p Rocephin CBC/BMP: 09/10/17 0338 09/10/17 0338 Significant Findings Laboratory Tests Test 09/08/17 02:15 09/08/17 02:57 09/09/17 05:03 09/09/17 05:08 White Blood Count 11.1 TH/MM3 (4.0-11.0) 11.9 TH/MM3 (4.0-11.0) Red Blood Count 3.98 MIL/MM3 (4.50-5.90) 3.54 MIL/MM3 (4.50-5.90) Hemoglobin 12.6 GM/DL (13.0-17.0) 11.2 GM/DL (13.0-17.0) Hematocrit 37.6 % (39.0-51.0) 33.5 % (39.0-51.0) Neutrophils (%) (Auto) 76.8 % (16.0-70.0) 78.7 % (16.0-70.0) Monocytes (%) (Auto) 10.6 % (0.0-8.0) 11.0 % (0.0-8.0) Neutrophils # (Auto) 8.5 TH/MM3 (1.8-7.7) 9.4 TH/MM3 (1.8-7.7) Monocytes # (Auto) 1.2 TH/MM3 (0-0.9) 1.3 TH/MM3 (0-0.9) Activated Partial Thromboplast Time 30.2 SEC (24.3-30.1) Blood Urea Nitrogen 27 MG/DL (7-18) 24 MG/DL (7-18) Random Glucose 139 MG/DL (74-106) 120 MG/DL (74-106) Chloride Level 108 MEQ/L (98-107) 111 MEQ/L (98-107) Carbon Dioxide Level 19.9 MEQ/L (21.0-32.0) Estimat Glomerular Filtration Rate 67 ML/MIN (>89) 70 ML/MIN (>89) Urine Color DARK-RED (YELLW/STRAW) Urine Turbidity HAZY (CLEAR) Urine Protein 100 mg/dL (NEG-TRACE) Urine Ketones 10 mg/dL (NEG) Urine Occult Blood LARGE (NEG) Urine Nitrite POS (NEG) Urine Bilirubin SMALL (NEG) Urine Leukocyte Esterase MOD (NEG) Urine RBC 154 /hpf (0-3) Urine WBC Clumps FEW (NONE) Urine Calcium Oxalate Crystals FEW /hpf (NONE) Urine Bacteria MANY /hpf (NONE) Albumin 2.6 GM/DL (3.4-5.0) Calcium Level 8.2 MG/DL (8.5-10.1) Test 09/10/17 03:38 Red Blood Count 3.43 MIL/MM3 (4.50-5.90) Hemoglobin 10.8 GM/DL (13.0-17.0) Hematocrit 32.0 % (39.0-51.0) Blood Urea Nitrogen 22 MG/DL (7-18) Random Glucose 142 MG/DL (74-106) Calcium Level 8.0 MG/DL (8.5-10.1) Phosphorus Level 1.8 MG/DL (2.5-4.9) Chloride Level 111 MEQ/L (98-107) Estimat Glomerular Filtration Rate 73 ML/MIN (>89) PE at Discharge GENERAL: This is a well-nourished, well-developed patient, in no apparent distress. CARDIOVASCULAR: RRR, no gallops, or rubs. RESPIRATORY: Fair air entry bilaterally. No W, R, or R GASTROINTESTINAL: Abdomen soft, non-tender, nondistended. Positive bowel sounds MUSCULOSKELETAL: Extremities without clubbing, cyanosis, or edema. Pedal pulses appreciated NEUROLOGICAL: Awake and alert. Moves all extremity. Normal speech.no focal neurological deficit Hospital Course 86 years old -[place]ese male presented with hemorrhagic Cystitis with urinary retention, acute onset of dysuria, urgency and hematuria, U/a w/ significant hematuria/UTI, s/p Rocephin .FoleyIVF to replace losses, bladder irrigation, Hold ASA., Urology consult obtained Appreciate urology recommendations. Hematuria 2/2 UTI. Continue Rocephin, urine culture is growing gram negative rods. Flomax Cipro at discharge follow-up with urology [id number] encounter performed with the patient on discharge day, as well as physical exam, summary of hospitalization course and postdischarge plan has been D/W the patient. D/W nurse D/W case management social worker. Discharge medications reviewed and printed and signed, post discharge follow up visit with PCP and other specialist as well as Brief hospital course and discharge summary has been placed. Pt Condition on Discharge: Stable Discharge Disposition: Discharge to SNF Discharge Time: > 30 minutes Discharge Instructions DIET: Follow Instructions for: Heart Healthy Diet, Diabetic Diet Activities you can perform: See Additionl Instruction Other Activity Instructions: per PTrecs Follow up Referrals: Urology - 1 Week with Beka Zavala MD New Medications: Ciprofloxacin (Cipro) 500 Mg Tab 500 MG PO BID for Infection, #14 TAB 0 Refills Tamsulosin (Flomax) 0.4 Mg Cap 0.4 MG PO DAILY for uti, #30 CAP Continued Medications: Dorzolamide-Timolol Opth Drops (Dorzolamide-Timolol Opth Drops) 22.3-6.8 Mg/Ml Soln 1 DROP EACH EYE BID for Glaucoma, BOTTLE 0 Refills Glipizide (Glipizide) 5 Mg Tab 5 MG PO BID Latanoprost Opth Drops (Latanoprost Opth Drops) 0.005% Drops 1 DROP EACH EYE HS for Glaucoma, #2.5 ML 0 Refills Refrigerate until opened. Pilocarpine Opth 2% (Pilocarpine Opth 2%) 2 % Soln 1 DROP EACH EYE Q8HR for Glaucoma, #1 BOTTLE 0 Refills Ranitidine Hcl (Zantac) 150 Mg Tab 150 MG PO BID Karli Parrish MD Sep 10, 2017 13:08
[2017-09-10] MEDS: LISINOPRIL 20 MG TAB PO SCH (14:27)
[2017-09-10] MEDS: cloNIDine HCL 0.1 MG TAB PO PRN (14:27)
[2017-09-10] MEDS ORDERED: cloNIDine HCL 0.1 MG TAB PO PRN (14:30)
[2017-09-10] MEDS ORDERED: ENALAPRILAT 1.25 MG/ML VIAL IV PUSH PRN (14:30)
--- NOTE | 2017-09-10 15:36 | HHI.PR ---
Objective Vitals Vital Signs Date Time Temp Pulse Resp B/P (MAP) Pulse Ox O2 Delivery O2 Flow Rate FiO2 09/10/17 12:10 98.7 95 20 190/86 (120) 96 09/10/17 07:42 98.8 72 20 156/72 (100) 99 09/10/17 04:00 97.1 83 16 149/66 (93) 95 09/10/17 00:00 98.6 68 16 156/70 (98) 98 09/09/17 20:00 98.9 63 18 140/63 (88) 97 I/O 09/09/17 09/09/17 09/09/17 09/10/17 09/10/17 09/10/17 07:00 15:00 23:00 07:00 15:00 23:00 Intake Total 1650 ml 2300 ml Output Total 2900 ml 4125 ml 1825 ml Balance -1250 ml -1825 ml -1825 ml Intake Oral 650 ml 1200 ml IV Total 1000 ml 1100 ml Output Urine Total 2900 ml 4125 ml 1825 ml Bladder Scan Volume Amount 176 ml # Voids 2 # Bowel Movements 1 Result Diagram: 09/10/1733709/10/17337 Objective Remarks GENERAL: This is a well-nourished, well-developed patient, in no apparent distress. CARDIOVASCULAR: RRR, no gallops, or rubs. RESPIRATORY: Fair air entry bilaterally. No W, R, or R GASTROINTESTINAL: Abdomen soft, non-tender, nondistended. Positive bowel sounds MUSCULOSKELETAL: Extremities without clubbing, cyanosis, or edema. Pedal pulses appreciated NEUROLOGICAL: Awake and alert. Moves all extremity. Normal speech.no focal neurological deficit Procedures See below A/P Problem List: (1) Hemorrhagic cystitis ICD Code: N30.91 - Cystitis, unspecified with hematuria (2) Urinary retention ICD Code: R33.9 - Retention of urine, unspecified (3) DM (diabetes mellitus) ICD Code: E11.9 - Type 2 diabetes mellitus without complications Assessment and Plan 86 years old -[place] male presented with hemorrhagic Cystitis with urinary retention, acute onset of dysuria, urgency and hematuria, U/a w/ significant hematuria/UTI, s/p Rocephin .FoleyIVF to replace losses, bladder irrigation, Hold ASA., Urology consult obtained Appreciate urology recommendations. Hematuria 2/2 UTI. Continue Rocephin, urine culture is growing gram negative rods. Flomax Cipro at discharge follow-up with urology s/p Discharge Planning Today to sniff or home with home health pending PT recommendation Karli Parrish MD Sep 10, 2017 15:36
[2017-09-10 15:45] VITALS: BP 161/79; PULSE 75; RESP 20; TEMP 97.9; O2SAT 97
[2017-09-10 20:30] VITALS: BP 139/63; PULSE 83; RESP 17; TEMP 98.5; O2SAT 94
[2017-09-11 00:10] VITALS: BP 130/60; PULSE 80; RESP 19; TEMP 98; O2SAT 95
[2017-09-11 05:10] VITALS: BP 127/69; PULSE 78; RESP 18; TEMP 98.3; O2SAT 95
[2017-09-11] MEDS: cefTRIAXone INJ 1,000 MG in SODIUM CHLORIDE 0.9% INJ 100 ML IV SCH (05:36)
[2017-09-11 08:00] VITALS: BP 133/64; PULSE 73; RESP 16; TEMP 98.4; O2SAT 95
[2017-09-11] MEDS: INSULIN ASPART SUPPLEMENTAL SCALE SQ SCH (08:00)
[2017-09-11] MEDS: SODIUM CHLORIDE 0.9% FLUSH 10 ML FLUSH IV FLUSH SCH (08:51)
[2017-09-11] MEDS: LISINOPRIL 20 MG TAB PO SCH (09:00)
[2017-09-11] MEDS: DOCUSATE SODIUM 50 MG/SENNA 8.6 MG TAB PO SCH (09:00)
[2017-09-11] MEDS: TAMSULOSIN HCL 0.4 MG CAP PO SCH (09:00)
--- NOTE | 2017-09-11 10:23 | HHI.PR ---
Subjective Remarks Discharge held yesterday due to elevated blood pressure Patient reports he is feeling great. No hematuria. Blood pressure now controlled. Objective Vitals Vital Signs Date Time Temp Pulse Resp B/P (MAP) Pulse Ox O2 Delivery O2 Flow Rate FiO2 09/11/17 08:00 98.4 73 16 133/64 (87) 95 09/11/17 05:10 98.3 78 18 127/69 (88) 95 09/11/17 00:10 98.0 80 19 130/60 (83) 95 09/10/17 20:30 98.5 83 17 139/63 (88) 94 09/10/17 15:45 97.9 75 20 161/79 (106) 97 09/10/17 12:10 98.7 95 20 190/86 (120) 96 I/O 09/10/17 09/10/17 09/10/17 09/11/17 09/11/17 09/11/17 07:00 15:00 23:00 07:00 15:00 23:00 Intake Total 1210 ml 975 ml Output Total 1825 ml 350 ml 1500 ml Balance -1825 ml 860 ml -525 ml Intake Oral 1210 ml 975 ml Output Urine Total 1825 ml 350 ml 1500 ml Bladder Scan Volume Amount 176 ml # Voids 2 2 # Bowel Movements 1 1 0 Result Diagram: 09/10/1733709/10/17337 Objective Remarks GENERAL: This is a well-nourished, well-developed patient, in no apparent distress. CARDIOVASCULAR: Normal rate and regular rhythm without murmurs, gallops, or rubs. RESPIRATORY: Good respiratory efforts. Breath sounds equal and clear to auscultation bilaterally. GASTROINTESTINAL: Abdomen soft, non-tender, non-distended. Normal active bowel sounds MUSCULOSKELETAL: Extremities without cyanosis, or edema. NEURO: Alert & Oriented x4 to person, place, time, situation. Moves all ext x4 PSYCH: Appropriate mood and affect. A/P Problem List: (1) Hemorrhagic cystitis ICD Code: N30.91 - Cystitis, unspecified with hematuria (2) Urinary retention ICD Code: R33.9 - Retention of urine, unspecified (3) DM (diabetes mellitus) ICD Code: E11.9 - Type 2 diabetes mellitus without complications Assessment and Plan 86 years old -[place] male presented with hemorrhagic Cystitis with urinary retention, acute onset of dysuria, urgency and hematuria, U/a w/ significant hematuria/UTI, s/p Rocephin. Kim, IVF to replace losses, bladder irrigation, Hold ASA., Urology consult obtained Appreciate urology recommendations. Hematuria 2/2 UTI. Continue Rocephin, urine culture grew E. coli. Flomax and Cipro at discharge follow-up with urology Hypertension: Patient was started on lisinopril and blood pressure normalized. He is discharged on the same to follow-up outpatient with PCP. Resume prior discharge orders. Okay to discharge today. Lilibeth Parekh MD Sep 11, 2017 10:23
[2017-09-11 12:00] VITALS: BP 159/73; PULSE 77; RESP 16; TEMP 98.3; O2SAT 97
[2017-09-11] MEDS ORDERED: LISI-515 PO (13:41)
== END 2017-09-11 13:58 | disposition home or self-care (01) | DRG 690 ==
LOC: NEPE 01:47 → NEDA 04:53 → HCIS 08:28 → N05A 09-09 18:31
PROVIDERS: ADMIT Family Medicine; ATTEND Family Medicine
PROC: 0T9B70Z Drainage of Bladder with Drainage Device, Via Natural or Artificial Opening (ICD-10-PCS; principal; 2017-09-08)
PROC: 3E1K78Z Irrigation of Genitourinary Tract using Irrigating Substance, Via Natural or Artificial Opening (ICD-10-PCS; 2017-09-08)
DX: N30.91 Cystitis, unspecified with hematuria (principal); E11.9 Type 2 diabetes mellitus without complications; B96.20 Unspecified Escherichia coli [E. coli] as the cause of diseases classified elsewhere; R33.8 Other retention of urine; I10 Essential (primary) hypertension; Z79.84 Long term (current) use of oral hypoglycemic drugs; Z79.82 Long term (current) use of aspirin; Z85.46 Personal history of malignant neoplasm of prostate; Z92.3 Personal history of irradiation
CPT/HCPCS: 51703; 80048; 80053; 81001; 82948; 83735; 84100; 85025; 85027; 85610; 85730; 87040; 87077; 87086; 87186; J0696; J1815; J2270; J2405; J7030